=== PATIENT | male | born 1965 | race Two or more races ===

== ENCOUNTER 2018-08-13 14:26 | Emergency (ER) | payer SELFPAY ==
[~2018-08-13] VITALS: Ht 188 cm; Wt 78.3 kg
[2018-08-13 15:41] LABS: BASOPHILS # (AUTO) 0.04 x10^3/uL (0-0.1); BASOPHILS % (AUTO) 1 % (0-1); EOSINOPHILS # (AUTO) 0.12 x10^3/uL (0-0.4); EOSINOPHILS % (AUTO) 1 % (1-7); LYMPHOCYTES # (AUTO) 1.71 x10^3/uL (1-3.4); LYMPHOCYTES % (AUTO) 20 % (22-44); MD NO; MEAN CORPUSCULAR HEMOGLOBIN 31.7 pg (27.5-34.5); MEAN CORPUSCULAR VOLUME 93.3 fL (81-97); MEAN PLATELET VOLUME 7.7 fL (7.4-10.4); MONOCYTES # (AUTO) 0.57 x10^3/uL (0.2-0.8); MONOCYTES % (AUTO) 7 % (2-9); NEUTROPHILS % (AUTO) 71 % (42-75); PLATELET COUNT 288 x10^3/uL (130-400); RED BLOOD COUNT 6.28 x10^6/uL (4.38-5.82)
[2018-08-13 15:42] LABS: ALANINE AMINOTRANSFERASE 26 U/L (12-78); ALBUMIN 4.3 g/dL (3.4-5.0); ANION GAP 7 mmol/L (5-15); CALCIUM 9.3 mg/dL (8.5-10.1); CHLORIDE 107 mmol/L (98-107)
[2018-08-13 15:45] LABS: ALKALINE PHOSPHATASE 104 U/L (45-117); CREATININE 1.04 mg/dL (0.7-1.3); TOTAL PROTEIN 7.8 g/dL (6.4-8.2)
--- NOTE | 2018-08-13 16:39 | NUR ---
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
--- NOTE | 2018-08-13 17:09 | NUR ---
ASSUMED CARE OF PT AT THIS TIME.
--- NOTE | 2018-08-13 17:16 | NUR ---
THIS IS A 52 YO MALE WHO PRESENTS TO THE ER C/O DECREASED APPETITE X 3 DAYS AND N/V X 1.5 DAYS. PT REPORTS 2 EPISOES YESTERDAY AND ONE EPISODE TODAY. PT DENIES ABD PAIN, FLANK PAIN OR DIARRHEA. NONTENDER TO PALP OF ABD. PT AO X 4. SKIN WARM AND DRY. RESP EVEN AND EQUAL. CALL LIGHT WITHIN REACH. WILL CONT TO MONITOR PT.
[2018-08-13] MEDS ORDERED: ONDANSETRON ODT 4 MG PO ONE (17:30)
[2018-08-13] MEDS ORDERED: ONDANSETRON ODT 4 MG ONE (17:49)
--- NOTE | 2018-08-13 18:00 | NUR ---
PT MEDICATED ORDERED FOR NAUSEA. PT UP TO RESTROOM, STEADY UPON AMBULATION. URINE SAMPLE OBTAINED AND SENT TO LAB. PT CONT TO DENY PAIN. PT ON CONT BP AND O2 MONITORS. CALL LIGHT WITHIN REACH. WILL CONT TO MONITOR PT.
[2018-08-13 18:24] LABS: CULTURE INDICATED? YES; MICROSCOPIC INDICATED
[2018-08-13] MEDS ORDERED: FAMOTIDINE 20 MG TABLET PO ONE (18:30)
[2018-08-13] MEDS ORDERED: FAMOTIDINE 20 MG TABLET ONE (18:48)
--- NOTE | 2018-08-13 18:52 | NUR ---
PT HAS TOLERATED PO FLUIDS WELL. PT CONT TO DENY PAIN. REPORT TO BERTIN JUAREZ WHO ASSUMED CARE OF PT.
--- NOTE | 2018-08-13 18:53 | NUR ---
PT REPORT FROM TROY DENTON. THIS RN TO ASSUME CARE OF PT. PO CHALLENGE ADMIN PER MD AND MEDICATED PER JUN. TBDC. AWAITING D/C PAPERWORK.
[2018-08-13 18:54] VITALS: BP 158/103
== END 2018-08-13 19:07 | disposition home or self-care (01) ==
LOC: ED 16:54
DX: R11.10 Vomiting, unspecified (principal); R63.0 Anorexia
CPT/HCPCS: 36415; 80053; 81001; 83690; 85025; 87086; 93005; 99284; Q0162